=== PATIENT | male | born 1950 | race American Indian/Alaskan Native ===

== ENCOUNTER 2017-01-17 01:24 | Emergency (ER) | payer OTHER ==
[2017-01-17 04:16] LABS: Bilirubin,Urine NEG (Negative); Blood,Urine NEG (Negative); Ketones,Urine NEG (Negative); Leukocyte Esterase,Urine NEG (Negative); Mucus,Urine FEW /HPF; Nitrite,Urine NEG (Negative); Protein,Urine <15 mg/dL mg/dL (Negative); Urobilinogen,Urine < 2.0 mg/dL (<2.0)
--- NOTE | 2017-01-17 10:53 | Emergency Department Report ---
ED Male HPI - General Chief complaint: Urogenital-Male Stated complaint: PROSTATE Time Seen by Provider: 01/17/17 10:53 Source: patient Mode of arrival: Ambulatory Limitations: No Limitations - History of Present Illness Initial comments: This is a 66-year-old male who is previously unknown to this provider, who presents to the ER with urinary hesitancy. This is been going on for a few days. It is painless. There is no testicular pain. He reports that he was "checked out" [place] another doctor a [place] ago [place]. -: Gradual, days(s) Radiation: none Severity: mild Consistency: constant Improves with: none Worsens with: none denies: discharge, swelling, urinary retention, blood in urine, dysuria, nausea/ vomiting, incontinence - Related Data Sexually active: No Previous Rx's Medication Instructions Recorded Last Taken Type Tamsulosin [Flomax] 0.4 mg PO QHS #30 cap 01/17/17 Unknown Rx Allergies Allergy/AdvReac Type Severity Reaction Status Date / Time No Known Allergies Allergy Unverified 01/17/17 02:59 ED Review of Systems ROS: Stated complaint: PROSTATE Other details as noted in HPI Constitutional: denies: fever Eyes: denies: eye discharge ENT: denies: epistaxis Respiratory: denies: cough Cardiovascular: denies: chest pain Gastrointestinal: denies: abdominal pain Genitourinary: denies: urgency, dysuria, discharge, testicular pain, testicular mass Musculoskeletal: denies: back pain Neurological: denies: weakness ED Past Medical Hx - Past Medical History Previous Medical History?: Yes Hx Hypertension: Yes Additional medical history: prostate issues - Surgical History Past Surgical History?: No - Social History Smoking Status: Never Smoker - Medications Home Medications: Home Medications Medication Instructions Recorded Confirmed Last Taken Type Tamsulosin [Flomax] 0.4 mg PO QHS #30 cap 01/17/17 Unknown Rx ED Physical Exam - General Limitations: No Limitations General appearance: alert, in no apparent distress - Head Head exam: Present: atraumatic, normocephalic - Eye Eye exam: Present: normal appearance, EOMI. Absent: nystagmus - ENT ENT exam: Present: normal exam, normal orophraynx, mucous membranes moist, normal external ear exam - Neck Neck exam: Present: normal inspection, full ROM - Respiratory Respiratory exam: Present: normal lung sounds bilaterally. Absent: respiratory distress - Cardiovascular Cardiovascular Exam: Present: regular rate, normal rhythm, normal heart sounds. Absent: systolic murmur, diastolic murmur, rubs, gallop - GI/Abdominal GI/Abdominal exam: Present: soft, normal bowel sounds. Absent: distended, tenderness, guarding, rebound, rigid, pulsatile mass - Rectal Rectal exam: Present: deferred - exam: Present: normal inspection. Absent: testicular tenderness External exam: Present: normal external exam, other (there is no testicular tenderness. There is normal testicular lie bilaterally. There is normal cremasteric reflex bilaterally.) - Extremities Exam Extremities exam: Present: normal inspection - Back Exam Back exam: Present: normal inspection. Absent: tenderness, CVA tenderness (R) - Neurological Exam Neurological exam: Present: alert, oriented X3, normal gait, other (Extraocular movements intact. Tongue midline. No facial droop. Facial sensation intact to light touch in the V1, V2, V3 distribution bilaterally. 5 and 5 strength in 4 extremities.. Sensation is intact to light touch in 4 extremities.). Absent : motor sensory deficit - Psychiatric Psychiatric exam: Present: normal affect, normal mood - Skin Skin exam: Present: warm, dry, intact, normal color. Absent: rash ED Course Vital Signs 01/17/17 01/17/17 01/17/17 02:56 08:06 08:07 Temperature 97.9 F 98.3 F Pulse Rate 75 68 Respiratory 18 18 18 Rate Blood Pressure 183/96 Blood Pressure 147/95 [Left] O2 Sat by Pulse 98 96 96 Oximetry 01/17/17 12:15 Temperature 98.4 F Pulse Rate 76 Respiratory 20 Rate Blood Pressure Blood Pressure 146/76 [Left] O2 Sat by Pulse 97 Oximetry ED Medical Decision Making - Lab Data Vital Signs 01/17/17 01/17/17 01/17/17 02:56 08:06 08:07 Temperature 97.9 F 98.3 F Pulse Rate 75 68 Respiratory 18 18 18 Rate Blood Pressure 183/96 Blood Pressure 147/95 [Left] O2 Sat by Pulse 98 96 96 Oximetry Lab Results 01/17/17 Range/Units Unknown Urine Color Yellow (Yellow) Urine Turbidity Clear (Clear) Urine pH 5.0 (5.0-7.0) Ur Specific [place] 1.012 (1.003-1.030) Urine Protein <15 mg/dl (Negative) mg/dL Urine Glucose (UA) Neg (Negative) mg/dL Urine Ketones Neg (Negative) mg/dL Urine Blood Neg (Negative) Urine Nitrite Neg (Negative) Urine Bilirubin Neg (Negative) Urine Urobilinogen < 2.0 (<2.0) mg/dL Ur Leukocyte Esterase Neg (Negative) Urine WBC (Auto) 1.0 (0.0-6.0) /HPF Urine RBC (Auto) 1.0 (0.0-6.0) /HPF Urine Mucus Few /HPF - Medical Decision Making Differential diagnosis, including the not limited to: Benign prostatic hypertrophy, urinary tract infection, prostate cancer Assessment and plan: 66-year-old male with nocturnal hesitancy and sensation of incomplete voiding with urination for a week. He has no testicular pain and no irritative urinary symptoms. He has no rectal pain. He declines a digital rectal examination ER. Patient will be started empirically on tamsulosin, he is given the following lifestyle modification instructions: avoiding fluids prior to bedtime or before going out, reducing consumption of mild diuretics such as caffeine and alcohol, and double voiding to empty the bladder more completely. They should also avoid medications that can exacerbate symptoms (eg, diuretics) or induce urinary retention Patient will be instructed to follow-up with the primary care doctor and/or urology. He will be discharged at this time. Return precautions are reviewed. Critical care attestation.: If time is entered above; I have spent that time in minutes in the direct care of this critically ill patient, excluding procedure time. ED Disposition Clinical Impression: Urinary hesitancy Disposition: DC-01 TO HOME OR SELFCARE Is pt being admited?: No Does the pt Need Aspirin: No Condition: Stable Instructions: Benign Prostatic Hypertrophy (ED) Additional Instructions: Take the medication as directed. Side effects of medication include dizziness, lightheadedness, loss of consciousness, priapism/erection that does not subside. Follow up with the primary care doctor within the next month. Dr. cali is a local primary care doctor. Please note that blood pressure was elevated in the emergency department. This should be followed up by primary care doctor as recommended. Long-term complications of hypertension and elevated blood pressure include stroke, heart attack, disability, , paralysis, loss of quality of life. I also recommend that you follow-up with the urology specialist within the next 4-6 weeks for prostate cancer screening. Dr. Casillas is a local urology specialist. Not following up as recommended may result an undiagnosed cancer/ tumor/malignancy. Return to the ER right away with new pain, worsened pain, migration of pain, fevers, chills, lethargy, irritability, projectile vomiting, change in mental status, confusion, inability to tolerate liquid feedings. Prescriptions: Tamsulosin [Flomax] 0.4 mg PO QHS #30 cap Referrals: PRIMARY MD GREG [Primary Care Provider] - 3-5 Days EFREN MCGILL MD [Staff Physician] - 3-5 Days CALIN VIERA MD [Staff Physician] - 3-5 Days [facility] [Provider Group] - 3-5 Days
[2017-01-17 12:16] VITALS: BP 146/76
== END 2017-01-17 12:17 | disposition home or self-care (01) ==
LOC: ED 01:24
DX: R39.11 Hesitancy of micturition (principal); I10 Essential (primary) hypertension
CPT/HCPCS: 81001; 99283